=== PATIENT | male | born 1960 | race Caucasian/White ===

== ENCOUNTER 2016-03-29 09:58 | Emergency (ER) | payer OTHER ==
[2016-03-29 10:29] VITALS: BP 117/67
[2016-03-29] MEDS ORDERED: NORMAL SALINE 1,000 ML IV ONE (10:46)
[2016-03-29] MEDS ORDERED: ACETAMINOPHEN 500 MG TABLET PO ONE (10:46)
[2016-03-29 11:10] LABS: Hematocrit 45.1 % (42.0-52.0); Hemoglobin 15.1 gm/dL (13.5-18.0); Mean Cell Volume 92.8 fl (78-100); Mean Corpuscular Hemoglobin 31.1 pg (27-31); Mean Corpuscular Hgb Conc 33.5 g/dl (32-36); Mean Platelet Volume 8.8 fl (6.0-9.5); Neutrophil # 7.3 K/mm3 (1.3-6.0); Neutrophil % 73.8 % (42-75.0); Platelet Count 236 K/mm3 (150-450); Red Blood Count 4.86 M/mm3 (4.7-6.0); Red Cell Distribution Width 11.9 % (11.5-14.0); White Blood Count 9.9 K/mm3 (4.0-10.5)
[2016-03-29 11:23] LABS: Albumin * 3.7 gm/dl (3.4-5.0); Anion Gap 13.2 mmol/L (6.8-13.8); BUN/Creatinine Ratio 10.6 (9.0-21.6); Bilirubin, Total 0.6 mg/dL (0.0-1.1); Ca. Corrected For Albumin 8.6 mg/dL (8.4-10.2); Calcium * 8.7 mg/dL (7.9-10.9); Carbon Dioxide 29.5 mmol/L (24-32.6); Potassium 4.7 mmol/L (3.4-4.6)
--- NOTE | 2016-03-29 11:49 | ERNOTE ---
Date of Service: 03/29/16 Time Seen by Provider: 03/29/16 10:41 Stated Complaint: FLU Presenting Symptoms:: cough Source: patient Exam Limitations: no limitations Immunizations: IMMUNIZATION HX History of Influenza Vaccine Yes Hx Pneumococcal Vaccination No Allergies/Adverse Reactions: Allergies No Known Allergies Allergy (Verified 03/29/16 10:29) Home Medications: HOME MEDICATIONS Aspirin [Aspirin Enteric Coated] 325 mg PO DAILY 01/02/16 [Last Taken Unknown] Blood Sugar Diagnostic, Drum [Accu-Chek Compact] 1 each MC QID 01/02/16 [Last Taken Unknown] Insulin Aspart [Novolog Flexpen] 10 unit SQ AC 01/02/16 [Last Taken Unknown] Insulin Glargine,Hum.rec.anlog [Lantus Solostar] 30 unit SQ DAILY 01/02/16 [ Last Taken Unknown] Lisinopril [Zestril] 5 mg PO DAILY 01/02/16 [Last Taken Unknown] Simvastatin [Zocor] 40 mg PO HS 01/02/16 [Last Taken Unknown] Cefuroxime Axetil [Ceftin] 500 mg PO BID #20 tab 03/29/16 [Last Taken Unknown] Oseltamivir Phosphate [Tamiflu] 75 mg PO BID #10 cap 03/29/16 [Last Taken Unknown] - History of Present Ilness Narrative: Sick with a cough for ten days. Chills and sweats. Temp to 101 yesterday. Timing: getting worse Severity: moderate Frequency/Possible Cause: Reports: no prior episodes Modifying Factors - Improves: Reports: nothing Modifying Factors - Worsens: Reports: nothing Associated Symptoms: Reports: lightheadedness, muscle aches Prior Treatment: Denies: recently seen, currently on antibiotics Review of Systems - Review of Systems Constitutional: Present: fever, chills, diaphoresis, weakness, malaise EYE: Present: no symptoms reported ENT: Present: sore throat Respiratory: Present: shortness of breath Cardiology: Present: no symptoms reported Gastrointestinal/Abdominal: Present: no symptoms reported Genitourinary: Present: no symptoms reported Musculoskeletal: Present: muscle pain, muscle stiffness Neurological: Present: no symptoms reported Endocrine: Present: no symptoms reported Hematologic/Lymphatic: Present: no symptoms reported Psych: Present: no symptoms reported All Other Systems: All systems neg except as marked - Patient's Past Medical History Patient History - Medical: Diabetes Type 1 Patient History - Cardiac/Respiratory: No pertinent hx Patient History - Cancer: No Hx of Cancer Patient History - Surgical Procedures: Colonoscopy - Family History Brother Family History - Cardiac/Respiratory: No pertinent hx Father Family History - Medical: , Anemia Family History - Cardiac/Respiratory: Coronary Heart Disease Mother Family History - Medical: No pertinent hx Family History - Cardiac/Respiratory: Hyperlipidemia Sister Family History - Medical: Hypothyroidism Family History - Cardiac/Respiratory: No pertinent hx - Social History Living Situations: home Smoking Status: Never smoker Alcohol Use: rarely Drug Use: none Physical Exam - Physical Exam General Appearance: Present: wd/wn, alert, no apparent distress Eye Exam: Normal inspection: bilateral, PERRL: bilateral, EOMI: bilateral Ears, Nose, Throat: Present: normal ENT inspection, hearing grossly normal, pharyngeal erythema Neck: Present: normal inspection, nontender Respiratory: Present: no respiratory distress, normal breath sounds - frequent cough Cardiovascular/Chest: Present: regular rate, rhythm, no murmur Gastrointestinal/Abdominal: Present: normal bowel sounds, nontender, nondistended, soft, no organomegaly Back Exam: Present: normal inspection, no CVA tenderness Extremity Exam: Present: normal inspection, non-tender, no edema Neurological Exam: Present: alert, oriented, normal mood/affect, no motor/ sensory deficits Skin Exam: Present: normal color, warm/dry ED Progress - Results and Orders Patient's Lab Results:: I have reviewed the patient's lab results. - Vital Signs Patient's Vital Signs:: I have reviewed the patient's vital signs. Vital Signs: Vital Signs 03/29/16 10:25 Temperature 37.2 C Pulse Rate 99 Respiratory 12 Rate Blood Pressure 117/67 O2 Sat by Pulse 93 Oximetry - X-Ray X-Ray #1 X-Ray: chest Interpretation: Reviewed by me - chronic bronchitis, nodule lingula, consider chest CT, 15 mm diameter - Progress/Reassessment Chief Complaint: Cough Departure - Departure Clinical Impression: Influenza A, Bronchitis Disposition: Home self-care Condition: Good Instructions: Acute Bronchitis, Influenza, Adult, [id number], Pulmonary Nodule Additional Instructions: Rest. tylenol four times daily on a regular basis. Sometime in the next month, you may need a CAT scan of your chest, to find out more about a tiny white spot seen today on your chest xray. Discuss this at your followup doctor visit. Followup with your doctor this week. Prescriptions: Cefuroxime Axetil [Ceftin] 500 mg PO BID #20 tab Oseltamivir Phosphate [Tamiflu] 75 mg PO BID #10 cap
[2016-03-29 11:52] LABS: Urine Bilirubin 1 mg/dl (NEGATIVE); Urine Blood 25 /ul (NEGATIVE); Urine Ketone 15 mg/dL (NEGATIVE); Urine Nitrite Negative (NEGATIVE); Urine Protein 15 mg/dL (NEGATIVE); Urine Specific Gravity 1.025 SP.GR. (1.005-1.030); Urine Urobilinogen Normal (NORMAL); Urine pH 5.5 pH (5.0-7.0)
[2016-03-29 12:00] LABS: Urine Appearance Slightly Cloudy; Urine Color Yellow
[2016-03-29 12:01] LABS: Urine Bacteria None Seen; Urine Mucus Few - 1+; Urine RBC 0-5 /hpf (0-5); Urine WBC 0-5 /hpf (0-5)
== END 2016-03-29 12:40 | disposition home or self-care (01) ==
LOC: ER 09:58
DX: J09.X2 Influenza due to identified novel influenza A virus with other respiratory manifestations (principal); J20.9 Acute bronchitis, unspecified; E10.9 Type 1 diabetes mellitus without complications; Z79.4 Long term (current) use of insulin